=== PATIENT | male | born 1960 | race Caucasian/White ===

== ENCOUNTER 2021-03-09 12:34 | Inpatient (IN) | payer MEDICARE, OTHER ==
[~2021-03-09] VITALS: Ht 182.9 cm; Wt 83.9 kg
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
[2021-03-09 13:18] LABS: BASOPHILS % (AUTO) 0.5 % (0.0-2.0); EOSINOPHILS % (AUTO) 2.7 % (0.0-6.0); HEMATOCRIT 40 % (39-51); HEMOGLOBIN 13.4 g/dL (13.5-17.5); LYMPHOCYTES # (AUTO) 1.1 K/uL (0.8-4.8); LYMPHOCYTES % (AUTO) 22.6 % (20.0-44.0); MEAN CORPUSCULAR HGB CONC 34 g/dl (31.0-36.0); MEAN CORPUSCULAR VOLUME 89 fL (80-96); MONOCYTES # (AUTO) 0.4 K/uL (0.1-1.30); MONOCYTES % (AUTO) 8.9 % (2.0-12.0); NEUTROPHILS # (AUTO) 3.1 K/uL (1.8-8.9); NEUTROPHILS % (AUTO) 65.3 % (43.0-81.0); PLATELET COUNT (AUTO) 150 K/uL (150-450); WHITE BLOOD COUNT (AUTO) 4.8 K/uL (4.3-11.0)
[2021-03-09 13:22] LABS: CALCIUM, SERUM 8.7 mg/dL (8.5-10.1); CARBON DIOXIDE 29 mmol/L (21-32); CHLORIDE 104 mmol/L (98-107); CREATININE 0.8 mg/dL (0.6-1.3); GLUCOSE 88 mg/dL (74-106); POTASSIUM 3.6 mmol/L (3.5-5.1); SODIUM SERUM 139 mmol/L (136-145); UREA NITROGEN, BLOOD 22 mg/dL (7-18)
--- NOTE | 2021-03-09 13:24 | NUR ---
URINE AND COVID SWAB SENT TO LAB.
[2021-03-09 13:27] LABS: BILIRUBIN,URINE Negative (NEGATIVE); COLOR,URINE DARK YELLOW (YELLOW); LEUKOCYTE ESTERASE ,URINE Negative (NEGATIVE); NITRITE, URINE Negative (NEGATIVE); PH,URINE 6.5 (5.0-8.0); PROTEIN,URINE Negative (NEGATIVE); UGLUCOSE Negative (NEGATIVE)
[2021-03-09 13:35] LABS: ALANINE AMINOTRANSFERASE 34 U/L (12-78); ALCOHOL, BLOOD < 3 mg/dL (0-0); ALKALINE PHOSPHATASE 93 U/L (46-116); ASPARTATE AMINOTRANSFERASE 90 U/L (15-37); BILIRUBIN,DIRECT 0.1 mg/dL (0.0-0.2); BILIRUBIN,TOTAL 0.5 mg/dL (0.2-1.0); TOTAL PROTEIN, SERUM 7.7 g/dL (6.4-8.2)
[2021-03-09 13:37] LABS: RBC,URINE NONE SEEN /HPF (0-2)
[2021-03-09 13:38] LABS: BACTERIA,URINE None seen /HPF (None Seen); SQUAMOUS EPITHELIAL CELL,UR 0-2 /HPF (None Seen)
[2021-03-09 13:39] LABS: ACETAMINOPHEN < 10 ug/ml (10-30)
--- NOTE | 2021-03-09 14:13 | NUR ---
HOLD PLACED AT 1350
--- NOTE | 2021-03-09 14:15 | NUR ---
CALLED NURSING REINFORCING BAR SETTER FOR BED.
--- NOTE | 2021-03-09 15:03 | NUR ---
MOVE SHEET SUBMITTED.
--- NOTE | 2021-03-09 15:33 | NUR ---
BED 217A
--- NOTE | 2021-03-09 16:06 | NUR ---
REPORT GIVEN TO JACINTA MASSEY FOR JIMMIE.
--- NOTE | 2021-03-09 16:13 | NUR ---
PATIENT TRANSFERRED TO ROOM 217A, IN STABLE CONDITION.
--- NOTE | 2021-03-09 16:15 | NUR ---
CASTABLES WORKER NOTE- 61 Y/O MALE BROUGHT IN FROM FACILITY FOR INCREASING AGGRESSION AND POSTURING. PT ON 5150 DTO. ON FACE TO FACE ASSESSMENT, PT IS ALERT ORIENTED TO PERSON PLACE PURPOSE. MINOR CONFUSION NOTED. CALM FOLLOWS INSTRUCTIONS SEEMS GUARDED AND WARY. VS FOLLOWS - BP- 114/73, HR- 60, RR- 20, T- 98.0, O2 SATS 98% RA. ACCU CHECK BS- 80. PT TOX SCREEN POS METH. PMHX- DEMENTIA, PARKINSONS, GERD, SCHIZOPHRENIA COPD. PT DENIES SI HI [facility]. DR HOGAN NOTIFIED OF ADMISSION ORDERS RECEIVED AND COMPLIED WITH. DIET AND FOOD ORDERED. ORIENTED TO UNIT. MONITOR NEEDS AND SAFETY.
[2021-03-09] MEDS ORDERED: BLOOD SUGAR DIAGNOSTIC 1 EACH STRIP IN ONE (16:30)
[2021-03-09] MEDS ORDERED: MAG HYDROX/AL HYDROX/SIMETH 30 ML UDC PO PRN (16:30)
[2021-03-09] MEDS ORDERED: ACETAMINOPHEN 325 MG TABLET PO PRN (16:30)
[2021-03-09] MEDS ORDERED: MAGNESIUM HYDROXIDE 30 ML UDC PO PRN (16:30)
[2021-03-09] MEDS ORDERED: clonazePAM 0.5 MG TABLET PO PRN (16:30)
[2021-03-09] MEDS ORDERED: TEMAZEPAM 7.5 MG CAPSULE PO PRN (16:30)
[2021-03-09 16:57] VITALS: BP 114/73
[2021-03-09] MEDS ORDERED: QUET50TA PO (18:25)
[2021-03-09] MEDS ORDERED: CARB-37 PO (18:25)
[2021-03-09] MEDS ORDERED: QUET25TA PO (18:25)
[2021-03-09] MEDS ORDERED: CARB1TAB40 PO (18:25)
[2021-03-09] MEDS ORDERED: PRAM0.253 PO (18:25)
[2021-03-09] MEDS ORDERED: ROPI2TAB7 PO (18:25)
[2021-03-09] MEDS ORDERED: FAMO20TA8 PO (18:25)
--- NOTE | 2021-03-09 18:33 | NUR ---
RN NOTE- MED RECON COMPLETED, DR EDGARD URBAN NOTIFIED. KLONOPIN 0.5 MG GIVEN ANXIETY.
--- NOTE | 2021-03-09 20:00 | NUR ---
GPR RN OPENING NOTE: PT IN ROOM AWAKENS TO SPEECH. DENIES PAIN AT THIS TIME. IN NO APPARENT DISTRESS AT THIS TIME. BREATHING EVEN AND UNLABORED. PT IS DISORGANIZED WITH THOUGHTS BUT REDIRECTABLE. DENIES SI/HI AT THIS TIME. WILL CONTINUE TO MONITOR PER PROTOCOL FOR SAFETY AND BEHAVIOR.
--- NOTE | 2021-03-09 20:30 | NUR ---
PAGED C JAVA DEVELOPER EPIC PROVIDER REGUARDING MED REC. SPOKE WITH LEONID LUCAS NP/ STATES HE WILL REVIEW MED REC TONIGHT.
[2021-03-09 20:32] VITALS: BP 101/68
--- NOTE | 2021-03-09 22:10 | NUR ---
CARE ENDORSED TO FAA RN.
[2021-03-09] MEDS: TEMAZEPAM 7.5 MG CAPSULE PO PRN (23:00)
--- NOTE | 2021-03-09 23:03 | NUR ---
GPS RN NOTES: Patient requested for sleep medication, Restoril 7.5mg, 2caps/15mg given PO PRN as ordered at 2300. Will continue to monitor.
[2021-03-10 07:23] LABS: ALBUMIN 3.9 g/dL (3.4-5.0); BILIRUBIN,TOTAL 0.5 mg/dL (0.2-1.0); CALCIUM, SERUM 9.1 mg/dL (8.5-10.1)
[2021-03-10 07:25] LABS: CHOLESTEROL 149 mg/dL (<200); HDL CHOLESTEROL 46 mg/dL (40-60); LDL 89 mg/dL (0-99); TRIGLYCERIDES 27 mg/dL (30-150)
[2021-03-10 08:00] VITALS: BP 141/88
[2021-03-10] MEDS: CARBIDOPA/LEVODOPA 25/250 MG 1 UDTAB PO SCH ×4 (08:33→21:05)
[2021-03-10] MEDS: ropiniROLE 0.5 MG TABLET PO SCH ×3 (08:33→16:45)
[2021-03-10] MEDS: CARBIDOPA/LEV CR 50/200 MG 1 UDTAB.SA PO SCH ×2 (08:33→21:04)
[2021-03-10] MEDS: FAMOTIDINE (20 MG) 20 MG TABLET PO SCH (08:33)
[2021-03-10] MEDS: PRAMIPEXOLE DI-HCL 0.25 MG TABLET PO SCH ×4 (09:03→21:04)
--- NOTE | 2021-03-10 11:41 | NUR ---
SNF Contact: SW contacted CJ ([phone]) from [facility] who confirmed that the pt can return to their facility once stable.
--- NOTE | 2021-03-10 14:05 | NUR ---
Family Contact: NINA called the pts sister, Emilie ([phone]), and was unable to leave a message due to her mailbox being full.
--- NOTE | 2021-03-10 14:11 | NUR ---
Initial Discharge Plan: Pt currently resides at [facility] located at [address] [place] [address]; ([phone]). Per pt, he would like to return to [facility]. SW will work with the pt and the MD regarding appropriate discharge planning. SW will form a safe and proper discharge.
[2021-03-10] MEDS: DIVALPROEX SODIUM 125 MG CAP.SPRINK PO SCH ×2 (14:38→21:11)
[2021-03-10] MEDS: QUETIAPINE FUMARATE 25 MG TABLET PO SCH ×3 (14:38→21:47)
[2021-03-10] MEDS ORDERED: hydrALAZINE HCL IV 20 MG VIAL IV PRN (15:30)
[2021-03-10 16:10] VITALS: BP 100/65
[2021-03-10] MEDS ORDERED: hydrALAZINE HCL 10 MG TABLET PO PRN (16:30)
[2021-03-10 20:20] VITALS: BP 107/62
[2021-03-10 20:30] VITALS: BP 107/62
[2021-03-11] MEDS: QUETIAPINE FUMARATE 25 MG TABLET PO SCH ×4 (08:16→21:51)
[2021-03-11] MEDS: PRAMIPEXOLE DI-HCL 0.25 MG TABLET PO SCH ×4 (08:16→21:01)
[2021-03-11] MEDS: CARBIDOPA/LEVODOPA 25/250 MG 1 UDTAB PO SCH ×4 (08:16→21:01)
[2021-03-11] MEDS: DIVALPROEX SODIUM 125 MG CAP.SPRINK PO SCH ×2 (08:16→21:01)
[2021-03-11] MEDS: FAMOTIDINE (20 MG) 20 MG TABLET PO SCH (08:16)
[2021-03-11] MEDS: ropiniROLE 0.5 MG TABLET PO SCH ×3 (08:16→16:35)
[2021-03-11] MEDS: CARBIDOPA/LEV CR 50/200 MG 1 UDTAB.SA PO SCH ×2 (08:16→21:01)
[2021-03-11 08:57] VITALS: BP 125/78
[2021-03-11 16:00] VITALS: BP 99/50
--- NOTE | 2021-03-11 18:23 | NUR ---
RN-NOTES PATIENT IN THE ROOM IN THE BED,GUARDED,CALM,NO ACUTE DISTRESS NOTED. ENDORSED TO THE CHARGE NURSE.
[2021-03-11 20:37] VITALS: BP 144/88
[2021-03-11 21:04] VITALS: BP 144/88
[2021-03-12 08:00] VITALS: BP 139/86
[2021-03-12] MEDS: ropiniROLE 0.5 MG TABLET PO SCH ×3 (09:00→17:26)
[2021-03-12] MEDS: QUETIAPINE FUMARATE 25 MG TABLET PO SCH ×4 (09:00→22:04)
[2021-03-12] MEDS: CARBIDOPA/LEVODOPA 25/250 MG 1 UDTAB PO SCH ×4 (09:00→21:40)
[2021-03-12] MEDS: FAMOTIDINE (20 MG) 20 MG TABLET PO SCH (09:00)
[2021-03-12] MEDS: DIVALPROEX SODIUM 125 MG CAP.SPRINK PO SCH ×2 (09:00→21:41)
[2021-03-12] MEDS: CARBIDOPA/LEV CR 50/200 MG 1 UDTAB.SA PO SCH ×2 (09:00→21:40)
[2021-03-12] MEDS: PRAMIPEXOLE DI-HCL 0.25 MG TABLET PO SCH ×4 (11:03→21:41)
[2021-03-12 16:06] VITALS: BP 105/69
[2021-03-12 20:15] VITALS: BP 104/66
[2021-03-12 20:36] VITALS: BP 104/66
[2021-03-12 21:53] VITALS: BP 112/68
--- NOTE | 2021-03-12 21:58 | NUR ---
RN NOTE PATIENT'S VITALS ARE 112/68, 64, 20, 98, 98% AT RA, NO ACUTE DISTRESS NOTED. 2100 SCHEDULED MEDS ADMINISTERED TO THE PATIENT & TOLERATED WELL.
--- NOTE | 2021-03-13 01:21 | NUR ---
RN NOTE PATIENT IS SLEEPING COMFORTABLY. NO ACUTE CHANGES NOTED.
[2021-03-13 07:23] LABS: BASOPHILS % (AUTO) 0.4 % (0.0-2.0); EOSINOPHILS % (AUTO) 4.5 % (0.0-6.0); HEMATOCRIT 40 % (39-51); HEMOGLOBIN 13.3 g/dL (13.5-17.5); LYMPHOCYTES % (AUTO) 34.4 % (20.0-44.0); MEAN CORPUSCULAR HGB CONC 33 g/dl (31.0-36.0); MEAN CORPUSCULAR VOLUME 89 fL (80-96); MONOCYTES # (AUTO) 0.5 K/uL (0.1-1.30); MONOCYTES % (AUTO) 8.7 % (2.0-12.0); NEUTROPHILS # (AUTO) 3.1 K/uL (1.8-8.9); PLATELET COUNT (AUTO) 143 K/uL (150-450); RED BLOOD CELL COUNT(AUTO) 4.52 MIL/uL (4.5-6.0); WHITE BLOOD COUNT (AUTO) 5.9 K/uL (4.3-11.0)
[2021-03-13 08:01] VITALS: BP 143/89
[2021-03-13] MEDS: DIVALPROEX SODIUM 125 MG CAP.SPRINK PO SCH ×2 (09:06→21:12)
[2021-03-13] MEDS: FAMOTIDINE (20 MG) 20 MG TABLET PO SCH (09:06)
[2021-03-13] MEDS: QUETIAPINE FUMARATE 25 MG TABLET PO SCH ×4 (09:06→22:07)
[2021-03-13] MEDS: ropiniROLE 0.5 MG TABLET PO SCH ×3 (09:06→16:29)
[2021-03-13] MEDS: CARBIDOPA/LEVODOPA 25/250 MG 1 UDTAB PO SCH ×4 (09:10→21:17)
[2021-03-13] MEDS: CARBIDOPA/LEV CR 50/200 MG 1 UDTAB.SA PO SCH ×2 (09:10→21:14)
[2021-03-13 09:11] LABS: ALBUMIN 3.6 g/dL (3.4-5.0); BILIRUBIN,TOTAL 0.4 mg/dL (0.2-1.0); CALCIUM, SERUM 8.5 mg/dL (8.5-10.1); CREATININE 0.9 mg/dL (0.6-1.3); MAGNESIUM 2.2 mg/dL (1.8-2.4); TOTAL PROTEIN, SERUM 7.3 g/dL (6.4-8.2)
[2021-03-13 09:23] LABS: POTASSIUM 4.3 mmol/L (3.5-5.1)
[2021-03-13] MEDS: PRAMIPEXOLE DI-HCL 0.25 MG TABLET PO SCH ×4 (09:53→21:13)
[2021-03-13 16:01] VITALS: BP 139/66
[2021-03-13 20:00] VITALS: BP 140/82
[2021-03-14] MEDS: TEMAZEPAM 7.5 MG CAPSULE PO PRN ×2 (00:51→22:54)
--- NOTE | 2021-03-14 00:53 | NUR ---
MS RN NOTES PATIENT REQUESTED FOR RESTORIL. GIVEN RESTORIL 15 MG PRN. WILL REASSESS AND CONTINUE Q15 MINUTES ROUNDING.
[2021-03-14 08:00] VITALS: BP 144/89
[2021-03-14] MEDS: ropiniROLE 0.5 MG TABLET PO SCH ×3 (08:17→16:51)
[2021-03-14] MEDS: FAMOTIDINE (20 MG) 20 MG TABLET PO SCH (08:18)
[2021-03-14] MEDS: CARBIDOPA/LEV CR 50/200 MG 1 UDTAB.SA PO SCH ×2 (08:18→20:58)
[2021-03-14] MEDS: PRAMIPEXOLE DI-HCL 0.25 MG TABLET PO SCH ×4 (08:18→20:57)
[2021-03-14] MEDS: CARBIDOPA/LEVODOPA 25/250 MG 1 UDTAB PO SCH ×4 (08:18→20:57)
[2021-03-14] MEDS: DIVALPROEX SODIUM 125 MG CAP.SPRINK PO SCH ×2 (08:19→16:53)
[2021-03-14] MEDS: QUETIAPINE FUMARATE 25 MG TABLET PO SCH ×4 (08:59→22:12)
--- NOTE | 2021-03-14 09:00 | NUR ---
RN-NOTES PATIENT IN THE ROOM IN THE BED,CALM,NO ACUTE DISTRESS NOTED. FOOD INTAKE AND MEDICATION COMPLIANT. WILL CONTINUE TO MONITOR FOR SAFETY..
--- NOTE | 2021-03-14 14:10 | NUR ---
Family Contact: SW called the pts sister, Kathi ([phone]) and informed her of pts discharge for tomorrow at 1:00 pm to [facility]. Pts sister confirmed the discharge.
[2021-03-14 16:00] VITALS: BP 122/71
[2021-03-14 20:00] VITALS: BP 121/77
--- NOTE | 2021-03-14 22:54 | NUR ---
RN NOTES PATIENT REQUESTED SOMETHING FOR SLEEP, RESTORIL 15 MG GIVEN ORDERED. WILL CONTINUE TO MONITOR
--- NOTE | 2021-03-15 06:43 | NUR ---
RN CLOSING NOTE PATIENT SLEEPING IN ROOM, NO S/S OF DISTRESS OR SOB NOTED, BREATHING EVEN AND UNLABORED. PT WAS COOPERATIVE, AMBULATED IN THE HALLWAY AT THE BEGINNING OF SHIFT AND SOCIALIZED WITH PEER. PT NEEDS REMINDERS TO STAND UP STRAIGHT WHEN AMBULATING WITH WALKER, UNSTEADY AT TIMES. PATIENT WAS MED COMPLIANT. MEDICATIONS GIVEN ORDERED. PATIENT NEEDS MET THROUGHOUT SHIFT. PATIENT DENIED SI/HI, NO C/O PAIN THROUGHOUT SHIFT. PATIENT SLEPT 7 HOURS. SAFETY MEASURES KEPT IN PLACE: BED LOCKED IN LOWEST POSITION, BED ALARM ON, SIDE RAILS UP X 2, Q15 MIN CHECKS FOR SAFETY BY STAFF. WILL ENDORSE TO DAY SHIFT NURSE FOR CONTINUITY OF CARE
[2021-03-15 08:00] VITALS: BP 150/82
[2021-03-15] MEDS: CARBIDOPA/LEVODOPA 25/250 MG 1 UDTAB PO SCH ×2 (08:30→12:11)
[2021-03-15] MEDS: QUETIAPINE FUMARATE 25 MG TABLET PO SCH ×2 (08:30→12:10)
[2021-03-15] MEDS: ropiniROLE 0.5 MG TABLET PO SCH ×2 (08:30→12:09)
[2021-03-15] MEDS: DIVALPROEX SODIUM 125 MG CAP.SPRINK PO SCH ×2 (08:30→12:10)
[2021-03-15] MEDS: FAMOTIDINE (20 MG) 20 MG TABLET PO SCH (08:30)
[2021-03-15] MEDS: CARBIDOPA/LEV CR 50/200 MG 1 UDTAB.SA PO SCH (08:30)
[2021-03-15] MEDS: PRAMIPEXOLE DI-HCL 0.25 MG TABLET PO SCH ×2 (08:30→12:10)
--- NOTE | 2021-03-15 13:25 | NUR ---
RN NOTE: DISCHARGE NOTE 61 YEAR OLD MALE DISCHARGED TO [facility] IN STABLE CONDITION. COMPLIANT WITH MEDICATIONS, COOPERATIVE WITH TREATMENT PLANS. PATIENT DENIES SI/HI AND INSTRUCTED TO GO TO THE CLOSEST ER IF DEVELOPING SI/HI. BEHAVIOR IMPROVED, PSYCHIATRIC TREATMENT PLANS MET, MEDICAL TREATMENT PLANS DEFERRED FOR DEFERRED FOR CONTINUAL MONITORING. EDUCATED PT ABOUT AFTER CARE PLAN AND COPY PROVIDED. RETURNED PERSONAL BELONGINGS TO PATIENT. MEDICATIONS RECONCILED WITH DR. CARR AND DR. MCARTHUR. REPORT GIVEN TO JOSEPH MASSEY FOR CONTINUITY OF CARE. PATIENT SIGNED DISCHARGE PAPERWORK. SKIN INTACT ON ADMIT AND DISCHARGE. PT LEFT THE UNIT ON GURNEY WITH EMS PRESENT AT 1325
--- NOTE | 2021-03-15 14:07 | NUR ---
Discharge: Pt will be discharged to [facility] ([facility]) located at [address] [place] [id number]; ([phone]). Pt will be transported via [facility] at 1PM. SW informed the pts pts sister, Kathi ([phone]), about the pts discharge. Upon discharge, Pt appears to be alert and oriented x2 with a flat affect. Pt denies both suicidal and homicidal ideation as well as auditory and visual hallucinations. Pt appears to be non-ambulatory with an unsteady gait and requires a walker. Pt will continue to be under the care of psychiatrist, Dr. Luns[place], located at [address] [facility], [address] [place] [address]; . Pt will be under the care of photographer helper, Dr. Gage, located at [address] [place] [address]; . Pt was provided with substance abuse referrals and will follow up with her aftercare providers at the facility. The choice of vendor form and multidisciplinary exit care form were done, printed, signed, and given to the patient.
== END 2021-03-15 13:25 | DRG 885 ==
LOC: ER 13:11 → GPS 16:00
PROVIDERS: ADMIT Psychiatry & Neurology Psychiatry; ATTEND Internal Medicine
DX: F25.9 Schizoaffective disorder, unspecified (principal); F29 Unspecified psychosis not due to a substance or known physiological condition; F41.9 Anxiety disorder, unspecified; F32.9 Major depressive disorder, single episode, unspecified; I10 Essential (primary) hypertension; G20 Parkinson's disease; Z91.81 History of falling; R74.01 Elevation of levels of liver transaminase levels; Z73.6 Limitation of activities due to disability; F19.10 Other psychoactive substance abuse, uncomplicated; Z20.822 Contact with and (suspected) exposure to COVID-19
CPT/HCPCS: 36415; 76700-TC; 80048-TC; 80053-TC; 80061-TC; 80076-TC; 80164-TC; 81001; 82140-TC; 82550-TC; 82962-TC; 83735-TC; 85025-TC; 87081-TC; C9803; G0480; J0360